=== PATIENT | male | born 1995 | race Caucasian/White ===

== ENCOUNTER 2023-11-10 17:26 | Emergency (ER) | payer SELFPAY ==
[2023-11-10 17:57] LABS: #Basophils Less than 0.03 10x3/uL (0.0-0.2); %Basophils 0.3 % (0.0-1.0); %Eosinophils 0.5 % (0.0-10.0); %Lymphocytes 16.4 % (21.0-51.0); %Monocytes 7.1 % (0.0-10.0); %Neutrophils 75.4 % (42.0-75.0); Hematocrit 47.5 % (42.0-52.0); Hemoglobin 16.9 g/dL (14.0-18.0); Mean Corpuscular HGB CONC 35.6 g/dL (32.0-36.0); Mean Corpuscular Hemoglobin 31.3 pg (27.0-31.0); Mean Platelet Volume 9.1 fL (7.4-10.4); Platelet Count 258 10x3/uL (130-400); RBC Distribution Width 12.3 % (11.5-14.5)
[2023-11-10 18:12] LABS: ALT (SGPT) 42 U/L (8-55); AST (SGOT) 28 U/L (5-34); Albumin 4.4 g/dL (3.5-5.0); Alkaline Phosphatase 74 U/L (40-110); Anion Gap 13 mmol/L (10-20); BUN (Urea Nitrogen) 15 mg/dL (8.9-20.6); Bilirubin, Total 1.1 mg/dL (0.2-1.2); Calc. Creatinine Clearance 0 mL/min (70-130); Calcium 9.8 mg/dL (7.8-10.44); Carbon Dioxide 27 mmol/L (22-29); Chloride 106 mmol/L (98-107); Estimated GFR 110; Globulin 2.9 g/dL (2.4-3.5); Glucose 106 mg/dL (70-105); Potassium 4.2 mmol/L (3.5-5.1); Protein, Total 7.3 g/dL (6.0-8.3); Sodium 142 mmol/L (136-145)
[2023-11-10 18:17] LABS: Troponin I Less than 0.010 ng/mL (< 0.028)
== END 2023-11-10 18:48 | disposition home or self-care (01) ==
LOC: ERS 17:26
DX: R00.2 Palpitations (principal)
CPT/HCPCS: 36415; 71045; 80053; 84439; 84443; 84484; 85025; 93005